=== PATIENT | male | born 1965 | race Caucasian/White ===

== ENCOUNTER 2016-07-28 18:10 | Emergency (ER) | payer OTHER ==
--- NOTE | 2016-07-28 18:40 | DIAGNOSTIC IMAGING REPORT ---
PROCEDURE: XR CHEST 1 VIEW INDICATION: CHEST PAIN TECHNIQUE: Single view chest. 1836 hours COMPARISON: None FINDINGS: Normal cardiomediastinal contour and central vessels. Clear lungs. No pleural effusion or pneumothorax. Intact osseous structures. IMPRESSION: 1. Normal chest.
--- NOTE | 2016-07-28 20:47 | ED CLINICAL REPORT ---
Clinical Report - Physicians/Mid Levels [facility] [address] [place] [address] 07/28/2016 18:11 Patient: AUGUSTINE HERNANDEZ Time Seen: 18:15; upon arrival, initial patient contact, initial documentation, patient care assumed. Arrived- By private vehicle. Historian- patient. HISTORY OF PRESENT ILLNESS Chief Complaint: CHEST PAIN and DISCOMFORT. At its maximum, severity described as moderate. When seen in the E.D., it was almost gone. Modifying factors. Not worsened by anything. Not relieved by anything. Is still present. Onset during driving. It is described as pressure, tightness and "pain" and it is described as located in the left chest area and radiating to the left upper extremity (and face). No nausea, vomiting, difficulty breathing or diaphoresis. (reports some increased stress lately). Similar symptoms previously: Once, as bad. ( years ago, back in the s). Recent medical care: Not recently seen/assessed. REVIEW OF SYSTEMS No cough. All systems otherwise negative, except as recorded above. PAST HISTORY Negative. SOCIAL HISTORY Light tobacco smoker. Occasional alcohol use. No drug use. No recent travel. Is a local resident. FAMILY HISTORY History of heart disease. ADDITIONAL NOTES The nursing notes have been reviewed with agreement regarding the chief complaint, HPI, ROS, PMH and patient medications and allergies. PHYSICAL EXAM Vital Signs: 07/28/2016 18:24 BP: 153/91. HR: 88. RR: 18. O2 saturation: 100%. Temp: 98.5 F. Have been reviewed as normal and appear to be correct. Appearance: Alert. Oriented X3. No acute distress. Eyes: Pupils equal, round and reactive to light. Eyes normal inspection. Neck: Normal inspection. Neck supple. CVS: Normal heart rate and rhythm. Heart sounds normal. Pulses normal. Respiratory: No respiratory distress. Breath sounds normal. Chest nontender. Back: Normal external inspection. Skin: Skin warm and dry. Normal skin color. No rash. Normal skin turgor. Extremities: Extremities exhibit normal ROM. No lower extremity edema. Neuro: Oriented X 3. No motor deficit. No sensory deficit. LABS, X-RAYS, AND EKG EKG: EKG time: (1905). No acute process. No acute ischemia. Normal EKG. Rate: 84. Normal EKG. The study has been interpreted contemporaneously by me (and dr andujar). The EKG appears to be a good tracing. Interpretation time: 1906. Chest X-ray: Normal Chest X-Ray. The X-rays were interpreted by the radiologist and contemporaneously by me. Interpretation time: 18:55. Laboratory Tests: CBC w Diff: (SOFIYA: 07/28/2016 18:19) ( HigRcvd 07/28/2016 19:05) Final results Test Result Flag Units (Reference) WHITE BLOOD COUNT 11.3 K/uL (4.5-11.5) RED BLOOD COUNT 3.94 L M/uL (4.50-5.90) HEMOGLOBIN 11.3 L gm/dL (13.5-17.5) HEMATOCRIT 33.4 L % (41.0-53.0) MEAN CELL VOLUME 85 fL (80-100) MEAN CORPUSCULAR HGB 29 pg (26-34) MEAN CORPUSCULAR HGB CONC 34 g/dL (31-37) RED CELL DISTRIBUTION WIDTH 15.3 H % (11.6-14.8) PLATELET COUNT 344 K/uL (150-400) NEUTROPHIL % 79.0 H % (50-75) LYMPH % 15.1 L % (25-40) MONO % 4.5 % (3-14) EOSINOPHIL % 1.0 % (0-4) BASOPHIL % 0.4 % (0-2) CPK: (SOFIYA: 07/28/2016 19:58) ( MsgRcvd 07/28/2016 20:30) Final results Test Result Flag Units (Reference) CPK 119 U/L (24-260) TROPONIN I <0.05 ng/mL (0.00-1.5) TROPONIN REFERENCE RANGE:<0.1 NEGATIVE0.1-1.5 INDETERMINANT>1.5 POSITIVE CMP: (SOFIYA: 07/28/2016 18:19) ( MsgRcvd 07/28/2016 19:20) Final results Test Result Flag Units (Reference) GLUCOSE 99 mg/dL (70-110) BUN 14 mg/dL (7-18) CREATININE 1.1 mg/dL (0.6-1.3) Estimated GFR >60 mL/min Estimated GFR- >60 mL/min Note: Persistent reduction over 3 months in eGFR<60 mL/min/1.73 m2 defines CKD. Patients with eGFR values>=60 mL/min/1.73 m2 may also have CKD if evidence ofpersistent proteinuria. Additional information may be foundat www.kidney.org. SODIUM 143 mmol/L (136-145) POTASSIUM 3.4 L mmol/L (3.5-5.1) CHLORIDE 104 mmol/L (98-107) CARBON DIOXIDE 31 mmol/L (21-32) CALCIUM 9.0 mg/dL (8.5-10.1) TOTAL PROTEIN 7.6 g/dL (6.4-8.2) ALBUMIN 4.0 g/dL (3.3-5.0) BILIRUBIN, TOTAL 0.3 mg/dL (0.0-1.0) ALKALINE PHOSPHATASE 74 U/L (46-116) AST (SGOT) 17 U/L (15-37) ALT (SGPT) 26 U/L (12-78) CPK 141 U/L (24-260) TROPONIN I <0.05 ng/mL (0.00-1.5) TROPONIN REFERENCE RANGE:<0.1 NEGATIVE0.1-1.5 INDETERMINANT>1.5 POSITIVE . PROGRESS AND PROCEDURES Course of Care: nurse reporting pt's cp relieved with #1 ntg 2004. pt updated with current results and tx plan 2043. pt now telling me the cp episodes mainly come when he gets stressed out over something, he can split wood and do other things, no issues, encouraged to f/u with pcp or someone. 07/28/2016 20:22 BP: 108/61. HR: 74. O2 saturation: 96%. Vital Signs: have been reviewed as normal and appear to be correct. Patient counseled in person regarding the patient's stable condition, test results and diagnosis. 20:44. Differential Diagnosis: I considered muscle strain, costochondritis, pleurisy, myocardial infarction, intermediate coronary syndrome, unstable angina, angina, aortic dissection, mitral valve prolapse, pericarditis, palpitations, pulmonary embolism, pneumonia, gastroesophageal reflux disease, esophagitis and esophageal spasm as a possible cause of chest pain in this patient. This is a partial list of diagnoses considered. (substance abuse, anxiety). Disposition: Discharged home in good and improved condition (20:46). Condition: good and stable. CLINICAL IMPRESSION Atypical chest pain .12 lead EKG performed. INSTRUCTIONS Warnings: GENERAL WARNINGS: Return or contact your physician immediately if your condition worsens or changes unexpectedly, if not improving as expected, or if other problems arise. SPECIFICALLY, return if you develop chest, neck, jaw, shoulder, arm, or back pain, difficulty breathing, a fluttering sensation in your chest, lightheadedness, fainting, excessive fatigue, or sudden sweating. Follow-up: Follow up with your doctor in about two days even if well. Call for an appointment. Summary of care provided to patient. Blood pressure screening was not performed during this visit because blood pressure screening was precluded by clinical urgency. Understanding of the discharge instructions verbalized by patient. Follow-up with: Noah Daugherty MD, Internal Medicine, , [place] [phone] Follow up in about two days as needed. Call for an appointment. Summary of care provided to patient. (Electronically signed by Earnestine iKrkland A.R.N.P. 07/28/2016 21:41)
--- NOTE | 2016-07-28 20:47 | ED NURSING NOTES ---
Clinical Report - Nurses [facility] [address] [place] [address] 07/28/2016 18:11 [id number] Triage time 18:24 Jul 28 2016. Acuity: LEVEL 3. Chief Complaint: CHEST PAIN. --18:27 Colt Curtis R.N. 18:24 07/28/16. BP: 153/91. HR: 88. RR: 18. O2 saturation: 100%. Temp: 98.5 F. Pain level now 09/02. --18:27 Colt Curtis R.N. Weight: 74.8 kg stated. Height/Length: 71 inches Per Patient. BMI: 23. --18:27 Colt Curtis R.N. Medications None. --18:26 Colt Curtis R.N. Allergies No Known Drug Allergy. --18:26 Colt Curtis R.N. History ( Pt states chest pressure, while driving). This started just prior to arrival. Treatment GOAT DRIVER: None. SOCIAL HX: Light tobacco smoker. Alcohol use; consumes beer occasionally. No drug use. --18:27 Colt Curtis R.N. Interventions ID band on patient. To treatment room. --18:27 Colt Curtis R.N. PHYSICAL ASSESSMENT GENERAL / NEURO / PSYCH: Alert. Oriented X 4. Appears in no acute distress. RESPIRATORY: Respirations not labored. Chest nontender. Breath sounds within normal limits. CVS: Cardiac rhythm: sinus arrhythmia. GI / : Abdomen soft. EXTREMITIES: No lower extremity edema. SKIN: Skin is warm and dry. --18:28 Colt Curtis R.N. NURSING PROGRESS NOTES Oxygen administered. chipper feeder and pulse oximeter placed on patient. Two patient identifiers checked. Call light placed in reach. Side rails up x 1. Bed placed in lowest position. --18:28 Colt Curtis R.N. EKG time: (1905). EKG was ordered, performed by a tech and shown to the ED physician. --18:32 Estrella Hendricks ER Tech1 18:32 07/28/2016 Site #1 started via IV in the right antecubital space with an 18g angiocath using 2% intra-dermal lidocaine, with aseptic technique; one attempt. Blood drawn: rainbow set. Labeled in the presence of the patient. Saline lock flushed. --18:32 Colt Curtis R.N. 18:34 07/28/2016 Nitroglycerin SL 0.4 mg given. Allergies verified and confirmed 5 rights. --18:34 Colt Curtis R.N. 18:37 07/28/2016 Aspirin PO 325 mg given. Allergies verified and confirmed 5 rights. --18:37 Colt Curtis R.N. 18:38 07/28/16. BP: 127/61. HR: 84. RR: 18. O2 saturation: 96%. Pain level now 0/10. --18:38 Colt Curtis R.N. 20:22 07/28/16. BP: 108/61. HR: 74. O2 saturation: 96%. --20:23 Bing Romero ER Tech1. DISPOSITION / DISCHARGE Departure time: 2023. Condition at departure: improved and stable. No learning barriers present. Discharge instructions provided and reviewed with the patient. Reviewed warnings. Reviewed medication(s). Treatments reviewed. Reviewed referrals. Patient verbalized understanding. Written instructions provided in [place]. The patient was discharged by the nurse practitioner. He was discharged home and accompanied by family. He left the Emergency Department ambulatory and via ambulance. Family member driving. --20:57 Colt Curtis R.N. 20:55 07/28/16. BP: 125/81. HR: 78. RR: 18. O2 saturation: 100%. Temp: 98.5 F. Pain level now 0/10. --20:57 Colt Curtis R.N. Locked/Released at 07/31/2016 1:43 by Colt Curtis R.N.
--- NOTE | 2016-07-28 20:47 | ED ORDER SUMMARY ---
..... Patient: AUGUSTINE HERNANDEZ OrderSheet [facility] VisitID: [id number] [address] [place] [address] 51y, M Registration Date/Time: 07/28/2016 ORDER SHEET Weight: 74.8 kg (stated) Allergies: No Known Drug Allergy GENERAL ORDERS: EKG - ER Stat (18:23 07/28/2016 LNations ER Tech1 per protocol) (Ack 18:30 KHoerner) (18:30 KHoerner) Chest 1V Urgent (18:28 07/28/2016 HBivens A.R.N.P.) (Ack 18:30 KHoerner) (18:44 Gaudencio) Test Deck Supervisor (Continuous) (18:07/28/2016 HBivens A.R.N.P.) (Ack 18:30 KHoerner) (18:45 DBeyer R.N.) Oxygen (2 L/min) (NC) (18:28 07/28/2016 HBivens A.R.N.P.) (Ack 18:30 KHoerner) (18:45 DBeyer R.N.) CBC w Diff Urgent (18:28 07/28/2016 HBivens A.R.N.P.) (Ack 18:30 KHoerner) (18:45 DBeyer R.N.) CMP Urgent (18:07/28/2016 HBivens A.R.N.P.) (Ack 18:30 KHoerner) (18:45 DBeyer R.N.) CPK Urgent (18:28 07/28/2016 HBivens A.R.N.P.) (Ack 18:30 KHoerner) (18:45 DBeyer R.N.) Troponin-I Urgent (18:28 07/28/2016 HBivens A.R.N.P.) (Ack 18:30 KHoerner) (18:45 DBeyer R.N.) CPK Urgent (19:32 07/28/2016 HBivens A.R.N.P.) (Ack 19:40 CHagerty ER Optimization Consultant) Troponin-I Urgent (19:32 07/28/2016 HBivens A.R.N.P.) (Ack 19:40 Brunilda ER Optimization Consultant) MEDICATION ORDERS: Aspirin PO 325 mg (Do not crush or chew, NOW) (18:28 07/28/2016 HBivens A.R.N.P.) (18:37 DBeyer R.N.) NitroGLYCERIN SL 0.4 mg (x3 PRN Chest Pain) (18:28 07/28/2016 HBivens A.R.N.P.) (18:34 DBeyer R.N.) IV FLUIDS: IV Saline Lock (18:28 07/28/2016 HBivens A.R.N.P.) (18:32 DBeyer R.N.) ORDER SHEET NOTES: [Electronically signed by Earnestine KirklandR.N.P. (21:41 07/28/2016)] [Electronically signed by Colt CurtisNKristal (01:43 07/31/2016)] [Electronically locked/signed by Colt Curtis R.N. (:43 07/31/2016)]
--- NOTE | 2016-07-28 20:47 | ED CLINICAL REPORT ---
Clinical Report - Physicians/Mid Levels [facility] [address] [place] [address] 07/28/2016 18:11 Patient: AUGUSTINE HERNANDEZ Time Seen: 18:15; upon arrival, initial patient contact, initial documentation, patient care assumed. Arrived- By private vehicle. Historian- patient. HISTORY OF PRESENT ILLNESS Chief Complaint: CHEST PAIN and DISCOMFORT. At its maximum, severity described as moderate. When seen in the E.D., it was almost gone. Modifying factors. Not worsened by anything. Not relieved by anything. Is still present. Onset during driving. It is described as pressure, tightness and "pain" and it is described as located in the left chest area and radiating to the left upper extremity (and face). No nausea, vomiting, difficulty breathing or diaphoresis. (reports some increased stress lately). Similar symptoms previously: Once, as bad. ( years ago, back in the s). Recent medical care: Not recently seen/assessed. REVIEW OF SYSTEMS No cough. All systems otherwise negative, except as recorded above. PAST HISTORY Negative. SOCIAL HISTORY Light tobacco smoker. Occasional alcohol use. No drug use. No recent travel. Is a local resident. FAMILY HISTORY History of heart disease. ADDITIONAL NOTES The nursing notes have been reviewed with agreement regarding the chief complaint, HPI, ROS, PMH and patient medications and allergies. PHYSICAL EXAM Vital Signs: 07/28/2016 18:24 BP: 153/91. HR: 88. RR: 18. O2 saturation: 100%. Temp: 98.5 F. Have been reviewed as normal and appear to be correct. Appearance: Alert. Oriented X3. No acute distress. Eyes: Pupils equal, round and reactive to light. Eyes normal inspection. Neck: Normal inspection. Neck supple. CVS: Normal heart rate and rhythm. Heart sounds normal. Pulses normal. Respiratory: No respiratory distress. Breath sounds normal. Chest nontender. Back: Normal external inspection. Skin: Skin warm and dry. Normal skin color. No rash. Normal skin turgor. Extremities: Extremities exhibit normal ROM. No lower extremity edema. Neuro: Oriented X 3. No motor deficit. No sensory deficit. LABS, X-RAYS, AND EKG EKG: EKG time: (1905). No acute process. No acute ischemia. Normal EKG. Rate: 84. Normal EKG. The study has been interpreted contemporaneously by me (and dr andujar). The EKG appears to be a good tracing. Interpretation time: 1906. Chest X-ray: Normal Chest X-Ray. The X-rays were interpreted by the radiologist and contemporaneously by me. Interpretation time: 18:55. Laboratory Tests: CBC w Diff: (SOFIYA: 07/28/2016 18:19) ( TngRcvd 07/28/2016 19:05) Final results Test Result Flag Units (Reference) WHITE BLOOD COUNT 11.3 K/uL (4.5-11.5) RED BLOOD COUNT 3.94 L M/uL (4.50-5.90) HEMOGLOBIN 11.3 L gm/dL (13.5-17.5) HEMATOCRIT 33.4 L % (41.0-53.0) MEAN CELL VOLUME 85 fL (80-100) MEAN CORPUSCULAR HGB 29 pg (26-34) MEAN CORPUSCULAR HGB CONC 34 g/dL (31-37) RED CELL DISTRIBUTION WIDTH 15.3 H % (11.6-14.8) PLATELET COUNT 344 K/uL (150-400) NEUTROPHIL % 79.0 H % (50-75) LYMPH % 15.1 L % (25-40) MONO % 4.5 % (3-14) EOSINOPHIL % 1.0 % (0-4) BASOPHIL % 0.4 % (0-2) CPK: (SOFIYA: 07/28/2016 19:58) ( MsgRcvd 07/28/2016 20:30) Final results Test Result Flag Units (Reference) CPK 119 U/L (24-260) TROPONIN I <0.05 ng/mL (0.00-1.5) TROPONIN REFERENCE RANGE:<0.1 NEGATIVE0.1-1.5 INDETERMINANT>1.5 POSITIVE CMP: (SOFIYA: 07/28/2016 18:19) ( MsgRcvd 07/28/2016 19:20) Final results Test Result Flag Units (Reference) GLUCOSE 99 mg/dL (70-110) BUN 14 mg/dL (7-18) CREATININE 1.1 mg/dL (0.6-1.3) Estimated GFR >60 mL/min Estimated GFR- >60 mL/min Note: Persistent reduction over 3 months in eGFR<60 mL/min/1.73 m2 defines CKD. Patients with eGFR values>=60 mL/min/1.73 m2 may also have CKD if evidence ofpersistent proteinuria. Additional information may be foundat www.kidney.org. SODIUM 143 mmol/L (136-145) POTASSIUM 3.4 L mmol/L (3.5-5.1) CHLORIDE 104 mmol/L (98-107) CARBON DIOXIDE 31 mmol/L (21-32) CALCIUM 9.0 mg/dL (8.5-10.1) TOTAL PROTEIN 7.6 g/dL (6.4-8.2) ALBUMIN 4.0 g/dL (3.3-5.0) BILIRUBIN, TOTAL 0.3 mg/dL (0.0-1.0) ALKALINE PHOSPHATASE 74 U/L (46-116) AST (SGOT) 17 U/L (15-37) ALT (SGPT) 26 U/L (12-78) CPK 141 U/L (24-260) TROPONIN I <0.05 ng/mL (0.00-1.5) TROPONIN REFERENCE RANGE:<0.1 NEGATIVE0.1-1.5 INDETERMINANT>1.5 POSITIVE . PROGRESS AND PROCEDURES Course of Care: nurse reporting pt's cp relieved with #1 ntg 2004. pt updated with current results and tx plan 2043. pt now telling me the cp episodes mainly come when he gets stressed out over something, he can split wood and do other things, no issues, encouraged to f/u with pcp or someone. 07/28/2016 20:22 BP: 108/61. HR: 74. O2 saturation: 96%. Vital Signs: have been reviewed as normal and appear to be correct. Patient counseled in person regarding the patient's stable condition, test results and diagnosis. 20:44. Differential Diagnosis: I considered muscle strain, costochondritis, pleurisy, myocardial infarction, intermediate coronary syndrome, unstable angina, angina, aortic dissection, mitral valve prolapse, pericarditis, palpitations, pulmonary embolism, pneumonia, gastroesophageal reflux disease, esophagitis and esophageal spasm as a possible cause of chest pain in this patient. This is a partial list of diagnoses considered. (substance abuse, anxiety). Disposition: Discharged home in good and improved condition (20:46). Condition: good and stable. CLINICAL IMPRESSION Atypical chest pain .12 lead EKG performed. INSTRUCTIONS Warnings: GENERAL WARNINGS: Return or contact your physician immediately if your condition worsens or changes unexpectedly, if not improving as expected, or if other problems arise. SPECIFICALLY, return if you develop chest, neck, jaw, shoulder, arm, or back pain, difficulty breathing, a fluttering sensation in your chest, lightheadedness, fainting, excessive fatigue, or sudden sweating. Follow-up: Follow up with your doctor in about two days even if well. Call for an appointment. Summary of care provided to patient. Blood pressure screening was not performed during this visit because blood pressure screening was precluded by clinical urgency. Understanding of the discharge instructions verbalized by patient. Follow-up with: Noah Daugherty MD, Internal Medicine, , [place] [phone] Follow up in about two days as needed. Call for an appointment. Summary of care provided to patient. (Electronically signed by Earnestine Kirkland A.R.N.P. 07/28/2016 21:41)
--- NOTE | 2016-07-28 20:47 | ED NURSING NOTES ---
Clinical Report - Nurses [facility] [address] [place] [address] 07/28/2016 18:11 [id number] Triage time 18:24 Jul 28 2016. Acuity: LEVEL 3. Chief Complaint: CHEST PAIN. --18:27 Colt Curtis R.N. 18:24 07/28/16. BP: 153/91. HR: 88. RR: 18. O2 saturation: 100%. Temp: 98.5 F. Pain level now 09/02. --18:27 Colt Curtis R.N. Weight: 74.8 kg stated. Height/Length: 71 inches Per Patient. BMI: 23. --18:27 Colt Curtis R.N. Medications None. --18:26 Colt Curtis R.N. Allergies No Known Drug Allergy. --18:26 Colt Curtis R.N. History ( Pt states chest pressure, while driving). This started just prior to arrival. Treatment SERVICE AGENT: None. SOCIAL HX: Light tobacco smoker. Alcohol use; consumes beer occasionally. No drug use. --18:27 Colt Curtis R.N. Interventions ID band on patient. To treatment room. --18:27 Colt Curtis R.N. PHYSICAL ASSESSMENT GENERAL / NEURO / PSYCH: Alert. Oriented X 4. Appears in no acute distress. RESPIRATORY: Respirations not labored. Chest nontender. Breath sounds within normal limits. CVS: Cardiac rhythm: sinus arrhythmia. GI / : Abdomen soft. EXTREMITIES: No lower extremity edema. SKIN: Skin is warm and dry. --18:28 Colt Curtis R.N. NURSING PROGRESS NOTES Oxygen administered. museum service scheduler and pulse oximeter placed on patient. Two patient identifiers checked. Call light placed in reach. Side rails up x 1. Bed placed in lowest position. --18:28 oClt Curtis R.N. EKG time: (1905). EKG was ordered, performed by a tech and shown to the ED physician. --18:32 Estrella Hendricks ER Tech1 18:32 07/28/2016 Site #1 started via IV in the right antecubital space with an 18g angiocath using 2% intra-dermal lidocaine, with aseptic technique; one attempt. Blood drawn: rainbow set. Labeled in the presence of the patient. Saline lock flushed. --18:32 Colt Curtis R.N. 18:34 07/28/2016 Nitroglycerin SL 0.4 mg given. Allergies verified and confirmed 5 rights. --18:34 Colt Curtis R.N. 18:37 07/28/2016 Aspirin PO 325 mg given. Allergies verified and confirmed 5 rights. --18:37 Colt Curtis R.N. 18:38 07/28/16. BP: 127/61. HR: 84. RR: 18. O2 saturation: 96%. Pain level now 0/10. --18:38 Colt Curtis R.N. 20:22 07/28/16. BP: 108/61. HR: 74. O2 saturation: 96%. --20:23 Bing Romero ER Tech1. DISPOSITION / DISCHARGE Departure time: 2023. Condition at departure: improved and stable. No learning barriers present. Discharge instructions provided and reviewed with the patient. Reviewed warnings. Reviewed medication(s). Treatments reviewed. Reviewed referrals. Patient verbalized understanding. Written instructions provided in [place]. The patient was discharged by the nurse practitioner. He was discharged home and accompanied by family. He left the Emergency Department ambulatory and via ambulance. Family member driving. --20:57 Colt Curtis R.N. 20:55 07/28/16. BP: 125/81. HR: 78. RR: 18. O2 saturation: 100%. Temp: 98.5 F. Pain level now 0/10. --20:57 Colt Curtis R.N. Locked/Released at 07/31/2016 1:43 by Colt Curtis R.N.
--- NOTE | 2016-07-28 20:47 | ED ORDER SUMMARY ---
..... Patient: AUGUSTINE HERNANDEZ OrderSheet [facility] VisitID: [id number] [address] [place] [address] 51y, M Registration Date/Time: 07/28/2016 ORDER SHEET Weight: 74.8 kg (stated) Allergies: No Known Drug Allergy GENERAL ORDERS: EKG - ER Stat (18:23 07/28/2016 LNations ER Tech1 per protocol) (Ack 18:30 KHoerner) (18:30 KHoerner) Chest 1V Urgent (18:28 07/28/2016 HBivens A.R.N.P.) (Ack 18:30 KHoerner) (18:44 Gaudencio) Sous Chef (Continuous) (18:07/28/2016 HBivens A.R.N.P.) (Ack 18:30 KHoerner) (18:45 DBeyer R.N.) Oxygen (2 L/min) (NC) (18:28 07/28/2016 HBivens A.R.N.P.) (Ack 18:30 KHoerner) (18:45 DBeyer R.N.) CBC w Diff Urgent (18:28 07/28/2016 HBivens A.R.N.P.) (Ack 18:30 KHoerner) (18:45 DBeyer R.N.) CMP Urgent (18:07/28/2016 HBivens A.R.N.P.) (Ack 18:30 KHoerner) (18:45 DBeyer R.N.) CPK Urgent (18:28 07/28/2016 HBivens A.R.N.P.) (Ack 18:30 KHoerner) (18:45 DBeyer R.N.) Troponin-I Urgent (18:28 07/28/2016 HBivens A.R.N.P.) (Ack 18:30 KHoerner) (18:45 DBeyer R.N.) CPK Urgent (19:32 07/28/2016 HBivens A.R.N.P.) (Ack 19:40 CHagerty ER Executive Chef Assistant) Troponin-I Urgent (19:32 07/28/2016 HBivens A.R.N.P.) (Ack 19:40 Brunilda ER Executive Chef Assistant) MEDICATION ORDERS: Aspirin PO 325 mg (Do not crush or chew, NOW) (18:28 07/28/2016 HBivens A.R.N.P.) (18:37 DBeyer R.N.) NitroGLYCERIN SL 0.4 mg (x3 PRN Chest Pain) (18:28 07/28/2016 HBivens A.R.N.P.) (18:34 DBeyer R.N.) IV FLUIDS: IV Saline Lock (18:28 07/28/2016 HBivens A.R.N.P.) (18:32 DBeyer R.N.) ORDER SHEET NOTES: [Electronically signed by Earnestine KirklandR.N.P. (21:41 07/28/2016)] [Electronically signed by Colt CurtisNKristal (01:43 07/31/2016)] [Electronically locked/signed by Colt Curtis R.N. (:43 07/31/2016)]
--- NOTE | 2016-08-01 02:28 | ED MED RECONCILIATION SUMMARY ---
Patient: AUGUSTINE HERNANDEZ DUSTY Medication Reconciliation Report [facility] VisitID: [id number] [address] [place] [address] 51y, M Registration Date/Time: 07/28/2016 Weight: 74.8 kg Height/Length: 71 in. BMI: 23.0 ALLERGIES: No Known Drug Allergy The patient's Home Medications are listed below: NONE. The source(s) of the original Home Medication information: Not obtained. The following Medications were given to the patient in the Emergency Department: Nitroglycerin [SL] SL 0.4 mg, administered: 07/28/2016 6:34:00 PM Aspirin [PO] PO 325 mg, administered: 07/28/2016 6:37:00 PM The following Medications were prescribed to the patient: None.
--- NOTE | 2016-08-01 02:28 | ED MED RECONCILIATION SUMMARY ---
Patient: AUGUSTINE HERNANDEZ DUSTY Medication Reconciliation Report [facility] VisitID: [id number] [address] [place] [address] 51y, M Registration Date/Time: 07/28/2016 Weight: 74.8 kg Height/Length: 71 in. BMI: 23.0 ALLERGIES: No Known Drug Allergy The patient's Home Medications are listed below: NONE. The source(s) of the original Home Medication information: Not obtained. The following Medications were given to the patient in the Emergency Department: Nitroglycerin [SL] SL 0.4 mg, administered: 07/28/2016 6:34:00 PM Aspirin [PO] PO 325 mg, administered: 07/28/2016 6:37:00 PM The following Medications were prescribed to the patient: None.
--- NOTE | 2016-08-01 02:28 | ED MAR SUMMARY ---
..... Medication Administration Record [facility] [address] [place] [address] Patient: AUGUSTINE HERNANDEZ Visit ID: [id number] 51y, M Weight: 74.8 kg Height/Length: 71 in BMI: 23 ALLERGIES: No Known Drug Allergy Given 18:34 07/28/2016 Colt Curtis, R.N. Medication Administered: NITROGLYCERIN [SL], Dose: 0.4 mg SL. Medication Ordered: NitroGLYCERIN SL 0.4 mg (x3 PRN Chest Pain). Given 18:37 07/28/2016 Colt Curtis, R.N. Medication Administered: ASPIRIN [PO], Dose: 325 mg PO. Medication Ordered: Aspirin PO 325 mg (Do not crush or chew, NOW).
--- NOTE | 2016-08-01 02:28 | ED DISCHARGE INSTRUCTIONS ---
Patient: AUGUSTINE HERNANDEZ General Instructions [facility] VisitID: [id number] [address] [place] [address] 51y, M Registration Date/Time: 07/28/2016 Atypical chest pain .12 lead EKG performed. INSTRUCTIONS Warnings: GENERAL WARNINGS: Return or contact your physician immediately if your condition worsens or changes unexpectedly, if not improving as expected, or if other problems arise. SPECIFICALLY, return if you develop chest, neck, jaw, shoulder, arm, or back pain, difficulty breathing, a fluttering sensation in your chest, lightheadedness, fainting, excessive fatigue, or sudden sweating. Follow-up: Follow up with your doctor in about two days even if well. Call for an appointment. Summary of care provided to patient. Blood pressure screening was not performed during this visit because blood pressure screening was precluded by clinical urgency. Understanding of the discharge instructions verbalized by patient. Follow-up with: Noah Daugherty MD, Internal Medicine, , [facility], [address] [place] [address] Follow up in about two days as needed. Call for an appointment. Summary of care provided to patient. ADDITIONAL INFORMATION Chest Pain, Noncardiac Based on your visit today, the exact cause of your chest pain is not certain. Your condition does not seem serious and your pain does not appear to be coming from your heart. However, sometimes the signs of a serious problem take more time to appear. Therefore, please watch for the warning signs listed below. Home Care: Rest today and avoid strenuous activity. Take any prescribed medicine as directed. Follow Up with your doctor or this facility as instructed or if you do not start to feel better within 24 hours. Get Prompt Medical Attention if any of the following occur: A change in the type of pain: if it feels different, becomes more severe, lasts longer, or begins to spread into your shoulder, arm, neck, jaw or back Shortness of breath or increased pain with breathing Cough with dark colored sputum (phlegm) or blood Weakness, dizziness, or fainting Fever of 100.4F (38C) or higher, or as directed by your healthcare provider Swelling, pain or redness in one leg Chest Pain, Uncertain Cause Chest pain can happen for a number of reasons. Sometimes the cause can not be determined. If yourcondition does not seem serious, and your pain does not appear to be coming from your heart, your doctor may recommend watching it closely. Sometimes the signs of a serious problem take more time to appear. Therefore, watch for the warning signs listed below. Home care After your visit, follow these recommendations: Rest today and avoid strenuous activity. Take any prescribed medicine as directed. Follow-up care Follow up with your doctor or this facility as instructed or if you do not start to feel better within 24 hours. Call 911 Get immediate medical attention if any of the following occur: A change in the type of pain: if it feels different, becomes more severe, lasts longer, or begins to spread into your shoulder, arm, neck, jaw or back Shortness of breath or increased pain with breathing Weakness, dizziness, or fainting Rapid heart beat Get prompt medical attention Call your doctor right away if any of the following occur: Cough with dark colored sputum (phlegm) or blood Fever of 100.4F(38C) or higher, or as directed by your health care provider Swelling, pain or redness in one leg You have been given the following additional information: Chest Pain, Noncardiac Chest Pain, Uncertain Cause (Electronically signed by Earnestine Kirkland A.R.N.P. 07/28/2016 21:41)
--- NOTE | 2016-08-01 02:28 | ED MAR SUMMARY ---
..... Medication Administration Record [facility] [address] [address] Patient: AUGUSTINE HERNANDEZ Visit ID: [id number] 51y, M Weight: 74.8 kg Height/Length: 71 in BMI: 23 ALLERGIES: No Known Drug Allergy Given 18:34 07/28/2016 Colt Curtis, R.N. Medication Administered: NITROGLYCERIN [SL], Dose: 0.4 mg SL. Medication Ordered: NitroGLYCERIN SL 0.4 mg (x3 PRN Chest Pain). Given 18:37 07/28/2016 Colt Curtis, R.N. Medication Administered: ASPIRIN [PO], Dose: 325 mg PO. Medication Ordered: Aspirin PO 325 mg (Do not crush or chew, NOW).
--- NOTE | 2016-08-01 02:28 | ED DISCHARGE INSTRUCTIONS ---
Patient: AUGUSTINE HERNANDEZ General Instructions [facility] VisitID: [id number] [address] [place] [address] 51y, M Registration Date/Time: 07/28/2016 Atypical chest pain .12 lead EKG performed. INSTRUCTIONS Warnings: GENERAL WARNINGS: Return or contact your physician immediately if your condition worsens or changes unexpectedly, if not improving as expected, or if other problems arise. SPECIFICALLY, return if you develop chest, neck, jaw, shoulder, arm, or back pain, difficulty breathing, a fluttering sensation in your chest, lightheadedness, fainting, excessive fatigue, or sudden sweating. Follow-up: Follow up with your doctor in about two days even if well. Call for an appointment. Summary of care provided to patient. Blood pressure screening was not performed during this visit because blood pressure screening was precluded by clinical urgency. Understanding of the discharge instructions verbalized by patient. Follow-up with: Noah Daugherty MD, Internal Medicine, , [facility], [address] [place] [address] Follow up in about two days as needed. Call for an appointment. Summary of care provided to patient. ADDITIONAL INFORMATION Chest Pain, Noncardiac Based on your visit today, the exact cause of your chest pain is not certain. Your condition does not seem serious and your pain does not appear to be coming from your heart. However, sometimes the signs of a serious problem take more time to appear. Therefore, please watch for the warning signs listed below. Home Care: Rest today and avoid strenuous activity. Take any prescribed medicine as directed. Follow Up with your doctor or this facility as instructed or if you do not start to feel better within 24 hours. Get Prompt Medical Attention if any of the following occur: A change in the type of pain: if it feels different, becomes more severe, lasts longer, or begins to spread into your shoulder, arm, neck, jaw or back Shortness of breath or increased pain with breathing Cough with dark colored sputum (phlegm) or blood Weakness, dizziness, or fainting Fever of 100.4F (38C) or higher, or as directed by your healthcare provider Swelling, pain or redness in one leg Chest Pain, Uncertain Cause Chest pain can happen for a number of reasons. Sometimes the cause can not be determined. If yourcondition does not seem serious, and your pain does not appear to be coming from your heart, your doctor may recommend watching it closely. Sometimes the signs of a serious problem take more time to appear. Therefore, watch for the warning signs listed below. Home care After your visit, follow these recommendations: Rest today and avoid strenuous activity. Take any prescribed medicine as directed. Follow-up care Follow up with your doctor or this facility as instructed or if you do not start to feel better within 24 hours. Call 911 Get immediate medical attention if any of the following occur: A change in the type of pain: if it feels different, becomes more severe, lasts longer, or begins to spread into your shoulder, arm, neck, jaw or back Shortness of breath or increased pain with breathing Weakness, dizziness, or fainting Rapid heart beat Get prompt medical attention Call your doctor right away if any of the following occur: Cough with dark colored sputum (phlegm) or blood Fever of 100.4F(38C) or higher, or as directed by your health care provider Swelling, pain or redness in one leg You have been given the following additional information: Chest Pain, Noncardiac Chest Pain, Uncertain Cause (Electronically signed by Earnestine Kirkland A.R.N.P. 07/28/2016 21:41)
== END 2016-07-28 20:24 | disposition home or self-care (01) ==
LOC: ED SRH 18:10
DX: R07.89 Other chest pain (principal); F17.200 Nicotine dependence, unspecified, uncomplicated
CPT/HCPCS: 90074; 90100; 90616; 92610; 95059